=== PATIENT | female | born 1950 | race Caucasian/White ===

== ENCOUNTER 2017-12-29 21:10 | Emergency (ER) | payer OTHER ==
[2017-12-29] MEDS ORDERED: Norflex 60 MG/2 ML IJ ONE (21:11)
[2017-12-29] MEDS ORDERED: Ativan 2 MG/1 ML VIAL IV ONE (21:11)
[2017-12-29] MEDS ORDERED: TORAdol 30 mg Injection IJ ONE (21:11)
== END 2017-12-29 21:32 | disposition home or self-care (01) ==
LOC: ED 21:10
DX: G50.0 Trigeminal neuralgia (principal); Z79.899 Other long term (current) drug therapy
CPT/HCPCS: 96372; 99284; J1885; J2060; J2360